=== PATIENT | female | born 1970 | race Caucasian/White ===

== ENCOUNTER 2024-09-05 12:56 | Outpatient (CLI) | payer BC ==
[2024-09-05 13:48] LABS: #Basophils 0.04 10x3/uL (0.0-0.2); %Basophils 0.5 % (0.0-1.0); %Eosinophils 5.9 % (0.0-10.0); %Lymphocytes 32.1 % (21.0-51.0); %Monocytes 9.6 % (0.0-10.0); %Neutrophils 51.1 % (42.0-75.0); Hematocrit 39.3 % (36.0-47.0); Hemoglobin 13.3 g/dL (12.0-16.0); Mean Corpuscular HGB CONC 33.8 g/dL (32.0-36.0); Mean Corpuscular Hemoglobin 27.7 pg (27.0-31.0); Mean Corpuscular Volume 81.9 fL (78.0-98.0); Mean Platelet Volume 10.2 fL (7.4-10.4); Platelet Count 225 10x3/uL (130-400); RBC Distribution Width 13.6 % (11.5-14.5)
[2024-09-05 14:03] LABS: Anion Gap 15 mmol/L (10-20); BUN (Urea Nitrogen) 10 mg/dL (9.8-20.1); Calc. Creatinine Clearance 0 mL/min (70-130); Calcium 9.6 mg/dL (7.8-10.44); Carbon Dioxide 25 mmol/L (22-29); Chloride 103 mmol/L (98-107); Estimated GFR 95; Glucose 206 mg/dL (70-105); Potassium 3.8 mmol/L (3.5-5.1); Sodium 139 mmol/L (136-145)
== END 2024-09-05 12:57 | disposition home or self-care (01) ==
LOC: LABBT 12:56
PROVIDERS: ATTEND Orthopaedic Surgery
DX: Z01.818 Encounter for other preprocedural examination (principal); R22.31 Localized swelling, mass and lump, right upper limb
CPT/HCPCS: 80048; 85025; 93005; 93010

== ENCOUNTER 2024-09-14 08:27 | Day surgery (SDC) | payer BC ==
[2024-09-05 13:10] VITALS: BMI 32.0
[2024-09-14] MEDS ORDERED: Lidocaine 1% PF 5 ML VIAL ONE (09:33)
[2024-09-14] MEDS ORDERED: Dexamethasone 20 MG/5 ML VIAL ONE (09:33)
[2024-09-14] MEDS ORDERED: PROPOFOL 20 ML ONE (09:33)
[2024-09-14] MEDS ORDERED: Ondansetron PF 4 MG/2 ML Vial ONE (09:33)
[2024-09-14] MEDS ORDERED: fentaNYL PF 100 MCG/2 ML SYRINGE ONE (09:33)
[2024-09-14] MEDS ORDERED: Lidocaine 2% 6 ML (Jelly) SYR ONE (09:34)
[2024-09-14] MEDS ORDERED: Bupivacaine PF 0.5% 30 ML VIAL ONE (10:07)
[2024-09-14] MEDS ORDERED: CEFAZOLIN 2 GM VIAL ONE (10:07)
== END 2024-09-14 12:14 | disposition home or self-care (01) ==
LOC: SDC 08:27
PROVIDERS: ATTEND Orthopaedic Surgery
PROC: 0JBJ0ZZ Excision of Right Hand Subcutaneous Tissue and Fascia, Open Approach (ICD-10-PCS; principal; 2024-09-14)
DX: D48.9 Neoplasm of uncertain behavior, unspecified (principal); I10 Essential (primary) hypertension; E78.5 Hyperlipidemia, unspecified; E11.9 Type 2 diabetes mellitus without complications; Z98.890 Other specified postprocedural states; Z90.710 Acquired absence of both cervix and uterus
CPT/HCPCS: 88305; 88312; A6223; J0665; J1100; J2405; J2704

== ENCOUNTER 2025-07-04 09:42 | Outpatient (CLI) | payer BC | END 2025-07-04 09:43 | disposition home or self-care (01) | LOC: BICULT 09:42 | PROVIDERS: ATTEND Family Medicine | DX: E05.90 Thyrotoxicosis, unspecified without thyrotoxic crisis or storm (principal) | CPT/HCPCS: 76536 ==